=== PATIENT | male | born 1955 | race Caucasian/White ===

== ENCOUNTER 2017-04-16 05:35 | Day surgery (SDC) | payer MEDICAID, MEDICARE ==
[~2017-04-16] VITALS: Ht 177.8 cm; Wt 77.1 kg
[2017-04-16 05:43] VITALS: BP 129/84
[2017-04-16] MEDS ORDERED: SODIUM CHLORIDE 0.9% 1000ML 1,000 ML IV ONE (06:21)
[2017-04-16] MEDS ORDERED: LAMO25TA8 PO (06:44)
[2017-04-16] MEDS ORDERED: METF-526 PO (06:44)
[2017-04-16] MEDS ORDERED: FURO20TA4 PO (06:44)
[2017-04-16] MEDS ORDERED: DICY20TA11 PO (06:44)
[2017-04-16] MEDS ORDERED: ACET1TAB25 PO (06:44)
[2017-04-16] MEDS ORDERED: PREG100C PO (06:44)
[2017-04-16] MEDS ORDERED: INSU100V12 SQ (06:44)
[2017-04-16] MEDS ORDERED: LINA145C PO (06:44)
[2017-04-16] MEDS ORDERED: PROPOFOL 10 MG/ML 20ML VIAL IV ONE (07:54)
== END 2017-04-16 09:10 | disposition home or self-care (01) ==
LOC: DAH 05:35 → ENDO 05:35
PROVIDERS: ATTEND Internal Medicine
DX: K63.5 Polyp of colon (principal); K57.30 Diverticulosis of large intestine without perforation or abscess without bleeding; K64.8 Other hemorrhoids; K64.4 Residual hemorrhoidal skin tags; F31.9 Bipolar disorder, unspecified; M19.90 Unspecified osteoarthritis, unspecified site; K21.9 Gastro-esophageal reflux disease without esophagitis; E11.43 Type 2 diabetes mellitus with diabetic autonomic (poly)neuropathy; K31.84 Gastroparesis; B19.20 Unspecified viral hepatitis C without hepatic coma; Z98.890 Other specified postprocedural states; K63.89 Other specified diseases of intestine; F17.200 Nicotine dependence, unspecified, uncomplicated
CPT/HCPCS: 45380; 82948; 88305; A4606; J2704; J7030

== ENCOUNTER 2017-04-18 19:21 | Emergency (ER) | payer MEDICAID, OTHER ==
[~2017-04-18 19:21] MED LIST: ACET1TAB25 PO; DICY20TA11 PO; FURO20TA4 PO; INSU100V12 SQ; LAMO25TA8 PO; LINA145C PO; METF-526 PO; PREG100C PO
== END 2017-04-18 20:00 | disposition home or self-care (01) ==
LOC: EDH 19:21
DX: E11.621 Type 2 diabetes mellitus with foot ulcer (principal); Z72.0 Tobacco use

== ENCOUNTER 2018-03-29 12:32 | Emergency (ER) | payer MEDICAID, OTHER | END 2018-03-29 13:25 | disposition home or self-care (01) | LOC: EDH 12:32 | DX: E11.621 Type 2 diabetes mellitus with foot ulcer (principal); L97.519 Non-pressure chronic ulcer of other part of right foot with unspecified severity; F31.9 Bipolar disorder, unspecified; Z98.890 Other specified postprocedural states | CPT/HCPCS: 99281 ==

== ENCOUNTER 2022-05-16 18:42 | Emergency (ER) | payer OTHER ==
[~2022-05-16] VITALS: Ht 180.3 cm; Wt 74.8 kg
[~2022-05-16 18:42] MED LIST changes: +ACET-2079 PO; -ACET1TAB25 PO; -DICY20TA11 PO; +DICY20TA3 PO; -LAMO25TA8 PO; +LAMO25TA9 PO
[2022-05-16 19:06] VITALS: BP 166/59
== END 2022-05-16 21:44 | disposition left against medical advice (07) ==
LOC: EDH 18:42
DX: E11.621 Type 2 diabetes mellitus with foot ulcer (principal); L97.529 Non-pressure chronic ulcer of other part of left foot with unspecified severity; Z53.21 Procedure and treatment not carried out due to patient leaving prior to being seen by health care provider